=== PATIENT | female | born 1935 | race Caucasian/White ===

== ENCOUNTER 2018-03-06 21:20 | Emergency (ER) | payer OTHER, MEDICARE ==
[~2018-03-06] VITALS: Ht 154.9 cm; Wt 57.3 kg
[~2018-03-06 21:20] MED LIST: CENTTAB9 PO; DOXY100T PO; RALO1TAB13 PO; SULF1TAB47 PO
[2018-03-06 21:31] VITALS: BP 146/65; PULSE 79; RESP 20; TEMP 98; O2SAT 100
--- NOTE | 2018-03-06 22:19 | PD ---
HPI Chief Complaint: Fall Time Seen by Provider: 21:45 Travel History International Travel<30 days: No Contact w/Intl Traveler<30days: No Traveled to known affect area: No History of Present Illness HPI Patient is an 82-year-old female not on any blood thinners presents emergency department after a slip and fall after getting out of the shower. Patient states she fell backwards and landed on her right shoulder, she states it hurts only mildly and she is able to range it completely, she is fairly certain she did not hit her head but is not 100% positive. She denies any headache chest pain shortness of breath abdominal pain nausea vomiting diarrhea constipation back pain or other extremity pain. She states symptoms started about an hour prior to arrival, right shoulder, no radiation, associated signs symptoms in context as above. PFSH Past Medical History Cancer: Yes (lung) Diminished Hearing: No Thyroid Disease: Yes Tetanus Vaccination: Unknown Influenza Vaccination: No ?: Not Menopausal: Yes Past Surgical History Appendectomy: Yes Endocrine Surgery: Yes (PARTIAL THYROIDECTOMY) Thoracic Surgery: Yes (lt lobectomy) Social History Alcohol Use: No Tobacco Use: Yes (1 PPD) Substance Use: No Allergies-Medications (Allergen,Severity, Reaction): Coded Allergies: penicillin G (Unverified Allergy, Severe, 03/06/18) Reported Meds & Prescriptions Reported Meds & Active Scripts Active Bactrim Ds (Trimethoprim/Sulfamethoxazole) Tab 1 Tab PO BID Vibramycin (Doxycycline Hyclate) 100 Mg Cap 100 Mg PO BID Reported Centrum (Multivitamins) Tab 1 Tab PO DAILY Evista (Raloxifene HCl) 60 Mg Tab 60 Mg PO DAILY Review of Systems Except as stated in HPI: all other systems reviewed are Neg Physical Exam Narrative GENERAL: Well-nourished, well-developed patient. In no obvious distress SKIN: Focused skin assessment warm/dry. HEAD: Normocephalic. Atraumatic, no marmolejo signs no raccoons eyes. EYES: No scleral icterus. No injection or drainage. NECK: Supple, trachea midline. No JVD or lymphadenopathy. CARDIOVASCULAR: Regular rate and rhythm without murmurs, gallops, or rubs. RESPIRATORY: Breath sounds equal bilaterally. No accessory muscle use. GASTROINTESTINAL: Abdomen soft, non-tender, nondistended. MUSCULOSKELETAL: No cyanosis, or edema. No midline CT or L-spine tenderness, patient has only minimal tenderness over the suprascapular muscle, no bruising seen, she has full nontender range of motion of abduction abduction internal and external rotation of the right shoulder, left shoulder is atraumatic, no other tenderness of the wrist elbows hands knees ankles feet hips. Pelvis is stable. 2+ bilateral pulses felt in all 4 extremities, motor and sensory intact distally in all 4 extremities per BACK: Nontender without obvious deformity. No CVA tenderness. Data Data Last Documented VS Vital Signs Date Time Temp Pulse Resp B/P (MAP) Pulse Ox O2 Delivery O2 Flow Rate FiO2 03/06/18 23:56 74 18 97 03/06/18 23:55 Room Air 03/06/18 21:[address] Brain W/O Iv Contrast(Rout) (03/06/18 ) Ct Cerv Spine W/O Contrast (03/06/18 ) Shoulder, Complete (>2vws) (03/06/18 ) Ed Discharge Order (03/06/18 23:29) MDM Medical Decision Making Medical Screen Exam Complete: Yes Emergency Medical Condition: Yes Differential Diagnosis Shoulder strain, shoulder sprain, shoulder fracture, head injury, neck injury peer Narrative Course Last 24 hours Impressions Shoulder X-Ray 03/06/18 0000 Signed Impressions: Service Date/Time: Tuesday, March 06, 2018 22:21 - CONCLUSION: 1. No acute bony abnormality. Osteopenia. Ishmael Connolly MD Head CT 03/06/18 0000 Signed Impressions: Service Date/Time: Tuesday, March 06, 2018 22:50 - CONCLUSION: No acute intracranial abnormality. 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 Patel Rausch MD Cervical Spine CT 03/06/18 0000 Signed Impressions: Service Date/Time: Tuesday, March 06, 2018 22:50 - CONCLUSION: 1. Minimal anterolisthesis C4-5 likely degenerative in nature. 2. No acute compression fracture. 3. Prominent degenerative changes. 4. Prominent scarring right apex. Patel Rausch MD [facility] offered pain medicine in the emergency department, she declined. Symptomatic management return to ED criteria and fall prevention at home. She stable for discharge. Diagnosis Primary Impression: Shoulder pain, right Additional Impression: Head injury, closed Disposition: 01 DISCHARGE HOME Condition: Stable Freddy Mcguire MD Mar 06, 2018 22:19
--- NOTE | 2018-03-06 22:37 | RADRPT ---
EXAM DATE/TIME: 03/06/2018 22:21 [facility] COMPARISON: No previous studies available for comparison. INDICATIONS : Right shoulder pain after falling backwards. MEDICAL HISTORY : None. SURGICAL HISTORY : None. ENCOUNTER: Initial ACUITY: 1 day PAIN SCORE: 3/10 LOCATION: Right shoulder. FINDINGS: Multiple view examination of the right shoulder demonstrates no evidence of fracture or dislocation. The glenohumeral and acromioclavicular joints are maintained. There is normal range of motion betwe en internal and external rotation. Bony mineralization is normal. CONCLUSION: 1. No acute bony abnormality. Osteopenia. Ishmael Connolly MD on March 06, 2018 at 22:32 Board Certified Radiologist. This report was verified electronically.
--- NOTE | 2018-03-06 23:15 | RADRPT ---
EXAM DATE/TIME: 03/06/2018 22:50 [facility] COMPARISON: No previous studies available for comparison. INDICATIONS : Trauma. Fall. RADIATION DOSE: 55.01 CTDIvol (mGy) MEDICAL HISTORY : Carcinoma, lung. SURGICAL HISTORY : Lobectomy. Thyroidectomy. ENCOUNTER: Initial ACUITY: 1 day PAIN SCALE: 5/10 LOCATION: Bilateral cranial TECHNIQUE: Multiple contiguous axial images were obtained of the head. Using automated exposure control and adj ustment of the mA and/or kV according to patient size, radiation dose was kept as low as reasonably a chievable to obtain optimal diagnostic quality images. DICOM format image data is available electro nically for review and comparison. FINDINGS: CEREBRUM: Cerebral atrophy. Areas of low-density in the white matter. The ventricles are normal for age. No ev idence of midline shift, mass lesion, hemorrhage or acute infarction. No extra-axial fluid collectio ns are seen. POSTERIOR FOSSA: The cerebellum and brainstem are intact. The 4th ventricle is midline. The cerebellopontine angle i s unremarkable. EXTRACRANIAL: The visualized portion of the orbits is intact. SKULL: The calvaria is intact. No evidence of skull fracture. CONCLUSION: No acute intracranial abnormality. 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 Patel Rausch MD on March 06, 2018 at 23:13 Board Certified Radiologist. This report was verified electronically.
--- NOTE | 2018-03-06 23:27 | RADRPT ---
EXAM DATE/TIME: 03/06/2018 22:50 [facility] COMPARISON: No previous studies available for comparison. INDICATIONS : Trauma. Fall. RADIATION DOSE: 24.98 CTDIvol (mGy) MEDICAL HISTORY : Carcinoma, lung. SURGICAL HISTORY : Thyroidectomy. Lobectomy. ENCOUNTER: Initial ACUITY: 1 day PAIN SCALE: 5/10 LOCATION: Bilateral neck TECHNIQUE: Volumetric scanning of the cervical spine was performed. Multiplanar reconstructions in the sagittal, coronal and oblique axial planes were performed. Using automated exposure control and adjustment o f the mA and/or kV according to patient size, radiation dose was kept as low as reasonably achievable to obtain optimal diagnostic quality images. DICOM format image data is available electronically f or review and comparison. FINDINGS: VERTEBRAE: No acute compression deformity. Minimal anterolisthesis C4 on 5. Slight loss of height of C5 and C6. Degenerative changes are seen greatest at C4-5 and C5-6 levels. Scarring in the right apex. ALIGNMENT: No evidence of subluxation. C2-C3: The bony spinal canal is normal in size. No evidence of disc bulge or herniation. The neural forami na are bilaterally patent. C3-C4: The bony spinal canal is normal in size. No evidence of disc bulge or herniation. Hypertrophic facet of the left causes moderate narrowing the left neural foramen. Right neural foramen patent C4-C5: Posterior disc osteophyte complex without canal stenosis. Moderate right and mild left-sided neural f rontal encroachment. C5-C6: The bony spinal canal is normal in size. No evidence of disc bulge or herniation. The neural forami na are bilaterally patent. C6-C7: The bony spinal canal is normal in size. No evidence of disc bulge or herniation. The neural forami na are bilaterally patent. C7-T1: The bony spinal canal is normal in size. No evidence of disc bulge or herniation. The neural forami na are bilaterally patent. CONCLUSION: 1. Minimal anterolisthesis C4-5 likely degenerative in nature. 2. No acute compression fracture. 3. Prominent degenerative changes. 4. Prominent scarring right apex. Patel Rausch MD on March 06, 2018 at 23:22 Board Certified Radiologist. This report was verified electronically.
[2018-03-06 23:55] VITALS: BP 142/65; PULSE 74; RESP 18; O2SAT 97
== END 2018-03-06 23:57 | disposition home or self-care (01) ==
LOC: PHED 21:20
DX: M25.511 Pain in right shoulder (principal); S09.90XA Unspecified injury of head, initial encounter; W01.0XXA Fall on same level from slipping, tripping and stumbling without subsequent striking against object, initial encounter; Z85.118 Personal history of other malignant neoplasm of bronchus and lung; F17.200 Nicotine dependence, unspecified, uncomplicated
CPT/HCPCS: 70450; 72125; 73030; 99284